=== PATIENT | female | born 1945 | race Caucasian/White ===

== ENCOUNTER 2023-07-12 08:23 | Emergency (ER) | payer MEDICARE, OTHER, SELFPAY ==
[2023-07-12 08:26] VITALS: BP 190/91
--- NOTE | 2023-07-12 08:57 | ED.GENMED ---
History of Present Illness
General
Chief Complaint: Musculo-Skeletal Complaint
Source: patient
Exam Limitations: none
Time Seen by Provider: 07/12/23 08:40
Nursing documentation reviewed up to this point in time: agreed with
Travel History
Have you had any contact with someone who has COVID-19?: No
Do you have any symptoms of coronavirus? Fever > 100 degrees, chills, cough, shortness of breath, sore throat, loss of taste or smell, muscle aches, or headache?: No
History of Present Illness
History of Present Illness:
78 yr old female presents to the ER for evaluation of neck pain. Patient reports Tuesday night while sleeping she developed the pain while turning in bed. Since then she has had right-sided neck pain worse with range of motion. She has pain with
looking up and looking to the left. She feels that pain radiates down the right side of her neck and in the back of her neck and right anterior chest. She denies any associated headache numbness tingling shortness of breath. She denies any
trauma. Denies any weakness to the upper or lower extremities. She did take ibuprofen this morning which has helped a little bit. Her son drove her to the ER and she lives with son and his . Patient has a history of hypertension leaky valve
history of meningioma removed years ago no cardiac history.
Past History
Past History
ED Past Medical History: GERD, Hypercholesterolemia, Valvular disease and Other (Remote history of meningioma)
ED Past Surgical History: Other (Craniotomy for meningioma)
Social History
Tobacco: Former smoker
Alcohol: Occasional
Drug: None
Personal:
Living: with family
Employment: Retired
Family History
Family History: Other (Sister with diabetes and breast cancer and [place])
Review of Systems
Review of Systems
Allergies reviewed?: Yes
All Other Systems: ROS reviewed and negative except as documented in HPI and ROS
Constitutional: Reports no symptoms; Denies fever
EENT: Reports no symptoms
Respiratory: Reports no symptoms; Denies trouble breathing
Cardiac: Reports other (pain radiated from right side of neck down chest with range of motion only )
ABD/GI: Reports no symptoms
: Reports no symptoms
Musculoskeletal: Reports neck pain
Skin: Reports no symptoms
Neurological: Reports no symptoms; Denies dizzy or headache
Psychiatric: Reports no symptoms
Phy Exam
General Physical Exam
General Presentation: well appearing
General age: appears stated age
General Skin: warm and dry
General Habitus: elderly
General Mental: alert
General Hydration: appears well hydrated
Cardiovascular Exam
Cardiovascular Exam: regular rate/rhythm, no murmur and normal peripheral pulses
Pulmonary Exam
Pulmonary Exam: lungs clear, no respiratory distress and other (mildly tender right upper chest )
Neurological Exam
Neurological Exam: alert and oriented x3
[place] Coma Scale
Eye Opening: Spontaneous
Verbal Response: Oriented
Motor Response: Obeys Commands
GCS Total Score: 15
Musculoskeletal Exam
Musculoskeletal Exam: other (Patient has discomfort with range of motion of neck worse with looking up and looking to the left. She is tender throughout palpation of the right cervical lateral muscle posterior neck and right upper chest)
Skin Exam
Skin Exam: normal color and warm/dry
Psychiatric Exam
Psychiatric Exam: normal mood/affect
Course
Orders/Labs/Results
Orders:
Orders
07/12/23 08:56
Acetaminophen [Tylenol] 650 mg PO NOW STA
diazePAM [Valium Injection] 2 mg IM NOW STA
07/12/23 08:57
Lidocaine [Lidocaine 4% Patch] 1 patch TOPICAL NOW STA
07/12/23 08:59
EKG- Treatment ONCE
07/12/23 09:00
Electrocardiogram (*1) Stat
Reason for Study: Other
Other Reason for Exam: chest pain
07/12/23 09:35
Complete Blood Count/With Diff Urgent
Comprehensive Metabolic Panel Urgent
Troponin I Urgent
Abnormal Lab Results
07/12/23
09:35
RBC 3.78 L 10^6/uL
(4.20-5.40)
Hgb 10.3 L g/dL
(12.0-16.0)
Hct 30.6 L %
(37.0-47.0)
BUN 18 H mg/dl
(7-17)
Glucose 106 H mg/dl
(70-99)
07/12/23 09:35
07/12/23 09:35
Vital Signs
Initial and Last Documented VS:
Initial Vital Signs
Temp Pulse Resp BP Pulse Ox
97.8 F 74 16 190/91 98
07/12/23 08:26 07/12/23 08:26 07/12/23 08:26 07/12/23 08:26 07/12/23 08:26
Last Documented Vital Signs
Temp Pulse Resp BP Pulse Ox
97.8 F 69 16 143/75 98
07/12/23 08:26 07/12/23 11:13 07/12/23 11:13 07/12/23 11:13 07/12/23 11:13
MDM/Problems Addressed
Differential Diagnosis Includes:
Not limited to muscle strain, torticollis less likely ACS.
MDM/Problems Addressed:
Patient is an 78-year-old female who presented with right-sided neck pain that radiates down her right anterior chest for the past several days symptoms are consistent with muscular torticollis. Because of radiation of pain EKG checked slightly
abnormal however symptoms are not consistent with ACS. Troponin performed and negative. Patient was given IM Valium Tylenol and lidocaine patch now feeling much better. Will DC with small dose of Valium Tylenol ibuprofen lidocaine patch and close
outpatient follow-up with family doctor.
Patient was discharged on Valium however in the [place] drug and database patient did have previous prescription for tramadol prescribed however she did not take this. I instructed patient since the Valium worked she can take Valium she is not able
to take Valium and tramadol together. She does verbalize understanding with this.
*Critical Care Note
Total Time (30-74mins, 75-104mins- exclusive of procedures): Not Applicable
ED Attending Note
-
Portions of this chart may have been created with voice recognition software.� Occasional wrong word or��sound alike� substitutions may have occurred due to the inherent limitations of voice recognition software.
Discharge Plan
Departure
Patient Disposition: Home (Routine Discharge)
Date of Disposition: 07/12/23
Time of Disposition: 11:22
Patient with high blood pressure during this ER visit?: Yes
Condition: Fair
Covid-19: Not Applicable
Discharge Problem:
Acute torticollis
Instructions: Torticollis (DC)
Prescriptions:
New
diazepam [Valium] 2 mg tablet
2 mg PO TID PRN (Reason: muscle spasm) Qty: 10 0RF
lidocaine [AsperFlex (lidocaine)] 4 % adhesive patch,medicated
1 patch topical Q12H PRN (Reason: Pain) Qty: 15 0RF
No Action
aspirin 81 MG tablet,delayed release (DR/EC)
81 mg PO DAILY
flaxseed oil 1,000 MG capsule
1,000 mg PO DAILY
rosuvastatin 20 MG tablet
10 mg PO QPM
coenzyme [id number] E 1 CAP capsule
1 cap PO DAILY
azilsartan med-chlorthalidone [Edarbyclor] 1 EACH tablet
1 tab PO DAILY
Patient Comments:
patient has sample from pcp from february
omeprazole 20 MG tablet,disintegrat, delay rel
40 mg PO BID
oxycodone-acetaminophen 5 MG/325 MG tablet
1 tab PO Q4HPRN PRN (Reason: severe pain) Qty: 10 0RF
naproxen 500 mg tablet
500 mg PO BID 5 Days Qty: 10 0RF
Referrals:
Lam Garcia DO [Family Provider] -
Activity Restrictions/Additional Instructions:
As discussed a prescription for Valium was sent to your pharmacy :take 2 mg every 8 hours only as needed. This medication will cause drowsiness no driving or drinking alcohol on medications. Do not take your tramadol while taking this medication.
You may take Tylenol 650 mg every 4-6 hours and ibuprofen 400 mg orally every 8 hours. Warm moist heat to neck several times a day. Follow-up with your family doctor in the next several days for reevaluation return if any worsening of symptoms.
Interventions
Interventions:
*Risk Screen - Suicide Last Done: 07/12/23 08:26
*General Assessment Last Done: 07/12/23 08:26
*Neglect/Abuse Screening Last Done: 07/12/23 08:26
ED- Fall Risk Assessment Last Done: 07/12/23 11:30
*ED COVID-19 Vaccine History Last Done: 07/12/23 08:52
*Nursing Disposition Last Done: 07/12/23 11:30
ED-Musculoskeletal Assessment Last Done: 07/12/23 08:53
Discharge Date and Time
Discharge Date/Time: 07/12/23 11:42
Print Language: BULGARIAN
[2023-07-12] MEDS: TYLENOL 650 MG PO (09:00)
[2023-07-12] MEDS: LIDOCAINE 4% PATCH 1 PATCH TOPICAL (09:00)
[2023-07-12] MEDS: VALIUM INJECTION 2 MG IM (09:01)
[2023-07-12 09:48] LABS: % Basophils 0.5 % (0-2); % Eosinophils 1.6 % (0-6); % Immature Granulocytes 0.3 % (0-0.5); % Lymphocytes 27.3 % (20.5-51.1); % Neutrophils 63.3 % (42.2-75.2); Absolute Eosinophils 0.1 10^3/uL (0-0.7); Absolute Lymphocytes 2.1 10^3/uL (1.2-3.4); Absolute Monocytes 0.5 10^3/uL (0.1-0.6); Absolute Neutrophils 4.8 10^3/uL (1.4-6.5); Hematocrit 30.6 % (37.0-47.0); Hemoglobin 10.3 g/dL (12.0-16.0); Mean Corp Hgb Conc. 33.7 g/dL (33.0-37.0); Mean Corpuscular Hgb 27.2 pg (27.0-31.0); Mean Platelet Volume 9.4 fL (7.4-10.4); Nucleated Red Blood Cells % 0 %; Platelet Count 245 10^3/uL (130-400); Red Blood Cell Count 3.78 10^6/uL (4.20-5.40); White Blood Cell Count 7.6 10^3/uL (4.8-10.8)
[2023-07-12 10:00] LABS: ALT (SGPT) 23 U/L (0-35); AST (SGOT) 26 U/L (14-36); Albumin 3.8 g/dl (3.5-5.0); Alkaline Phosphatase 84 U/L (38-126); Blood Urea Nitrogen 18 mg/dl (7-17); Calcium 9.6 mg/dl (8.4-10.2); Carbon Dioxide 28 mmol/L (22-30); Chloride 101 mmol/L (98-107); Glucose 106 mg/dl (70-99); Potassium 4.5 mmol/L (3.5-5.1); Sodium 136 mmol/L (135-145); Total Bilirubin 0.6 mg/dl (0.2-1.3); Total Protein 7.3 g/dl (6.3-8.2); eGFR > 60.00
[2023-07-12 10:30] LABS: Troponin I < 0.012 ng/ml
[2023-07-12 11:13] VITALS: BP 143/75
== END 2023-07-12 11:42 | disposition home or self-care (01) ==
LOC: EMR 08:23
PROVIDERS: Nurse Practitioner; EMERGENCY PHYSICIAN Emergency Medicine; FAMILY PHYSICIAN Family Medicine
DX: M54.2 Cervicalgia (principal); K21.9 Gastro-esophageal reflux disease without esophagitis; E78.00 Pure hypercholesterolemia, unspecified; I10 Essential (primary) hypertension; M43.6 Torticollis; Z80.3 Family history of malignant neoplasm of breast; Z83.3 Family history of diabetes mellitus; Z87.891 Personal history of nicotine dependence
CPT/HCPCS: 99283; 80053; 84484; 85025; 93005

== ENCOUNTER → 2023-12-27 06:13 | Day surgery (SDC) | payer MEDICARE, OTHER, SELFPAY | LOC: GI 06:13 | PROVIDERS: ATTENDING PHYSICIAN Internal Medicine Gastroenterology | DX: Z12.11 Encounter for screening for malignant neoplasm of colon (principal); D12.0 Benign neoplasm of cecum; D12.1 Benign neoplasm of appendix; K57.30 Diverticulosis of large intestine without perforation or abscess without bleeding; K64.8 Other hemorrhoids; Z86.010 Personal history of colon polyps | CPT/HCPCS: 45380; 88305 ==